=== PATIENT | female | born 1980 | race Caucasian/White ===

== ENCOUNTER 2018-04-13 19:02 | Emergency (ER) | payer OTHER ==
--- OUTSIDE RECORDS SUMMARY | 2018-04-13 19:15 | XMS REPORT | Continuity of Care Document ---
:1980 External Reference #:[id number] Author Name Winsome Bennett Care Team Providers Name Role Phone Tawny Damon MD Primary Care Physician Unavailable Payers Type Date Identification Numbers Payment Provider Subscriber Effective: 2014 Policy Number: [id number] [facility] Christy Hernandez Group Number: [id number] [address] PayID: [id number] GLEN Pina [phone] Expires: 2014 Policy Number: [id number] [employer] Christy Hernandez PayID: [id number] [address] [address] [place] [address] Advance Directives Description No Information Available Problems Date Description Provider Status Onset: 02/02/2011 Hypothyroidism Yenni Cee, N.P. Active Onset: 07/02/2016 Obstructive sleep apnea syndrome Lenora Shaffer MD Active Family History Date Family Member(s) Problem(s) Comments General Diabetes General Heart Disease Father Unknown Mother Hypertension Hypothyroidism age 50 Siblings 1 Sister - Past hx Anorexia age 25 Social History Type Date Description Comments Sex Unknown Marital Status Lives With Spouse Occupation [employer] Occupation [employer] ETOH Use Denies alcohol use Tobacco Use Start: Unknown End: Patient is a former Unknown smoker Smoking Status Reviewed: 03/23/18 Patient is a former smoker Exercise Exercises regularly Aerobics, Free Type/Frequency weights Allergies, Adverse Reactions, Alerts Date Description Reaction Status Severity Comments 02/09/2010 NKDA Active 01/26/2017 Glutein Active Medications Medication Date Status Form Strength Qnty SIG Indications Ordering Provider Synthroid 11/12 Active Tablets 50mcg 90tab Take 1 s Tablet By Varn, Mouth Once N.P. Daily Vitamin D3 Active Capsules 5000Unit 1 by mouth Unknown Maximum Strength /0000 every day Vitamin B-12 Active Michael 1 spray on Unknown /0000 tongue daily as needed + Dha Active THPK 27-1&250m 1 by mouth Unknown /0000 g every day Clotrimazole 09/05 Hx Solution 1% 30ml Apply B37.84 solution to Varn, - canals N.P. 09/19 twice daily for 14 days Escitalopram 05/31 Hx Tablets 20mg 30tab 1 by mouth s every day Varn, - N.P. 01/25 Bupropion HCL ER 05/03 Hx Tablets ER 300mg 30tab 1 by mouth F32.9 Yenni (XL) 24HR s every day Varn, - N.P. 01/25 Bupropion HCL ER 03/29 Hx Tablets ER 150mg 90tab 1 by mouth F32.9 Eynni (XL) 24HR s every day Varn, - N.P. 05/03 Ciprofloxacin 06/17 Hx Tablets 500mg 20tab one by Z71.89 Yenni s mouth twice Varn, - daily for N.P. 06/27 Vivotif Tosha 06/[address] 4caps 1 by mouth Z71.89 Yenni Vaccine every other Varn, - day till N.P. 06/29 Vitamin D3 05/18 Hx Capsules [id number] 8caps one by E55.9 mouth once Varn, - weekly N.P. 07/17 Vitamin D3 01/23 Hx Capsules [id number] 8caps one by mouth once Varn, - weekly N.P. 05/18 Ferrex 28 01/23 Hx Tablets 30tab 1 by mouth s every day Varn, - not taking N.P. 03/29 Vicodin 08/28 Hx Tablets 5-500mg 64tab 1-2 tablets s every 6 Stanford, - hours as M.D. 03/21 Escitalopram 05/05 Hx Tablets 10mg 90tab take one Yenni Oxalate s tablet by Varn, - mouth one N.P. 05/31 time daily Percocet 02/13 Hx Tablets 5-325mg 60tab 1-2 po s q4-6h prn Stanford, - pain M.D. 05/05 Tramadol HCL 12/21 Hx Tablets 50mg 30tab 1 tablet s three to Varn, - four times N.P. 01/20 daily needed Metaxalone 12/15 Hx Tablets 800mg 30tab take 1 723.1 s tablet 3 Varn, - times a day N.P. 01/14 as needed Lidoderm 12/15 Hx Patches 5% 30uni apply to 723.1 ts affected Varn, - area for 12 N.P. 01/14 hrs, remove for 12 hrs and repeat prn Zofran Odt 12/02 Hx Tablets 4mg 40tab q4-6h prn Dispers s Stanford, - M.DElizabeth 05/05 Ranitidine HCL 02/02 Hx Tablets 150mg 60tab take one 530.81 s tablet by Megan, - mouth twice M.D., 03/12 a day FAC Doxycycline 07/30 Hx Capsules 100mg 2caps 2 po Keiko Monohydrate Sheree Guzman.DElizabeth, 08/01 Diflucan 07/30 Hx Tablets 150mg 2tabs sig 1 po repeat in 3 Megan, - days if M.D., 07/31 needed Zithromax Z-Alex 02/09 Hx Tablets 250mg 1Pack two po initially Megan, - then one po M.D., 02/19 daily FAC Flonase 02/09 Hx Suspension 50mcg/Act 1unit 2 s intranasal Megan, - puffs to M.D., 02/02 each nostril daily Synthroid 11/07 Hx Tablets 25mcg 90tab 1 by mouth s every day Sheree Guzman M.D., 11/12 FAC Alprazolam Hx Tablets 0.25mg 30tab 1 tab three Yenni /0000 s times daily Varn, - as needed N.P. 03/07 Implanon Hx Implant 68mg Unknown /0000 - 05/05 Cyclobenzaprine Hx Tablets 10mg 90tab one by Yenni HCL /0000 s mouth three Varn, - times a day N.P. 03/13 as needed spasm Percocet Hx Tablets 5-325mg 1-2 po Unknown /0000 q4-6h prn - pain 05/05 Zinc Hx Capsules 50mg 1 by mouth Unknown /0000 every day - 03/07 Probiotic Daily Hx Capsules 1 by mouth Unknown /0000 every day - 03/07 Immunizations CPT Code Status Date Vaccine Reaction Lot # [id number] Given 01/15/2018 Influenza Virus Vaccine, Quadrivalent, Split, Preservative Free [id number] Given 12/22/2015 Hepatitis B Vaccine Adult no reaction noted [id number] Dosage 37141 Given 12/22/2015 Hepatitis A Vaccine Adult no reaction noted ... [id number] [place] [address] Given 06/18/2015 Hepatitis B Vaccine Adult [id number] Dosage 25607 Given 06/18/2015 Hepatitis A Vaccine Adult [id number] Dosage 99691 Given 12/31/2014 Influenza Virus Vaccine, [id number] Quadrivalent, Split, Preservative Free 73162 Given 12/13/2012 Flu Vaccine Split Virus [id number] Preservative Free For Indiv 3Yr Older [id number] Given 12/16/2011 Fluzone Vaccine [id number] 62810 Given 11/21/2007 Tdap - Tetanus/Diptheria/Acellular Pertussis [id number] Given 11/21/2007 Tdap - Tetanus/Diptheria/Acellular Pertussis Vital Signs Date Vital Result Comment 03/23/2018 10:42am Height 61.5 inches 5'1.50" Weight 171.00 lb Heart Rate 66 /min BP Systolic Sitting 114 mmHg BP Diastolic Sitting 80 mmHg Respiratory Rate 16 /min O2 % BldC Oximetry 98 % on Ra BMI (Body Mass Index) 31.8 kg/m2 09/05/2017 10:44am Height 61.5 inches 5'1.50" Weight 170.00 lb Heart Rate 71 /min BP Systolic 118 mmHg BP Diastolic 80 mmHg Body Temperature 96.7 F O2 % BldC Oximetry 98 % BMI (Body Mass Index) 31.6 kg/m2 03/15/2017 9:26am Height 62 inches 5'2" Weight 179.00 lb Heart Rate 72 /min BP Systolic Sitting 126 mmHg BP Diastolic Sitting 78 mmHg Respiratory Rate 14 /min O2 % BldC Oximetry 99 % BMI (Body Mass Index) 32.7 kg/m2 01/26/2017 2:58pm Height 62 inches 5'2" Heart Rate 82 /min BP Systolic Sitting 122 mmHg BP Diastolic Sitting 90 mmHg Respiratory Rate 12 /min no difficulties breathing Pain Level 0 O2 % BldC Oximetry 98 % 12/14/2016 11:29am Height 62 inches 5'2" Weight 190.00 lb Heart Rate 80 /min BP Systolic 140 mmHg BP Diastolic 90 mmHg Respiratory Rate 16 /min BMI (Body Mass Index) 34.7 kg/m2 07/02/2016 8:56am Height 61.5 inches 5'1.50" Weight 182.00 lb Heart Rate 84 /min BP Systolic Sitting 110 mmHg BP Diastolic Sitting 70 mmHg Respiratory Rate 14 /min O2 % BldC Oximetry 97 % BMI (Body Mass Index) 33.8 kg/m2 05/31/2016 9:48am Weight 186.00 lb with shoes Heart Rate 72 /min BP Systolic 128 mmHg BP Diastolic 92 mmHg Respiratory Rate 16 /min 05/24/2016 11:14am Height 61.5 inches 5'1.50" Weight 187.00 lb Heart Rate 98 /min BP Systolic 110 mmHg BP Diastolic 70 mmHg Respiratory Rate 14 /min O2 % BldC Oximetry 98 % BMI (Body Mass Index) 34.8 kg/m2 Neck Circumference in inches 15 05/03/2016 8:28am Height 61.5 inches 5'1.50" Weight 187.00 lb Heart Rate 70 /min BP Systolic 112 mmHg BP Diastolic 75 mmHg O2 % BldC Oximetry 98 % BMI (Body Mass Index) 34.8 kg/m2 04/23/2016 3:47pm Height 61.5 inches 5'1.50" Weight 188.00 lb Heart Rate 95 /min BP Systolic Sitting 139 mmHg BP Diastolic Sitting 95 mmHg Respiratory Rate 16 /min Body Temperature 96.9 F Pain Level 6 BMI (Body Mass Index) 34.9 kg/m2 03/29/2016 10:19am Height 61.25 inches 5'1.25" Weight 187.00 lb Heart Rate 79 /min BP Systolic 110 mmHg BP Diastolic 78 mmHg Body Temperature 97.9 F O2 % BldC Oximetry 98 % BMI (Body Mass Index) 35.0 kg/m2 12/22/2015 9:13am Weight 186.00 lb with shoes Heart Rate 85 /min BP Systolic Sitting 120 mmHg BP Diastolic Sitting 80 mmHg O2 % BldC Oximetry 98 % 06/18/2015 11:33am Height 61.5 inches 5'1.50" Weight 183.00 lb Heart Rate 81 /min BP Systolic Sitting 110 mmHg BP Diastolic Sitting 64 mmHg Body Temperature 96.8 F O2 % BldC Oximetry 96 % BMI (Body Mass Index) 34.0 kg/m2 05/19/2015 1:15pm Height 61.5 inches 5'1.50" Weight 184.50 lb Heart Rate 74 /min BP Systolic Sitting 109 mmHg BP Diastolic Sitting 71 mmHg Body Temperature 98.2 F Pain Level 0 O2 % BldC Oximetry 99 % BMI (Body Mass Index) 34.3 kg/m2 04/17/2015 1:12pm Height 61.5 inches 5'1.50" Weight 184.00 lb BMI (Body Mass Index) 34.2 kg/m2 03/20/2015 9:51am Height 61.5 inches 5'1.50" Weight 184.00 lb Heart Rate 79 /min BP Systolic Sitting 123 mmHg BP Diastolic Sitting 83 mmHg Respiratory Rate 16 /min Pain Level 8 BMI (Body Mass Index) 34.2 kg/m2 01/24/2015 1:53pm Height 61.5 inches 5'1.50" Weight 184.00 lb Heart Rate 98 /min BP Systolic Sitting 114 mmHg BP Diastolic Sitting 62 mmHg Respiratory Rate 14 /min Body Temperature 98.6 F O2 % BldC Oximetry 97 % BMI (Body Mass Index) 34.2 kg/m2 12/31/2014 10:49am Height 61.5 inches 5'1.50" Weight 185.00 lb Heart Rate 78 /min BP Systolic Sitting 118 mmHg BP Diastolic Sitting 72 mmHg Respiratory Rate 14 /min Body Temperature 98.1 F O2 % BldC Oximetry 98 % BMI (Body Mass Index) 34.4 kg/m2 10/11/2014 3:41pm Weight 185.00 lb Heart Rate 68 /min BP Systolic Sitting 122 mmHg BP Diastolic Sitting 80 mmHg Body Temperature 98.5 F O2 % BldC Oximetry 98 % 09/28/2013 11:40am Weight 176.00 lb Heart Rate 96 /min BP Systolic Sitting 116 mmHg BP Diastolic Sitting 76 mmHg Body Temperature 97.4 F 12/13/2012 10:26am Height 62 inches 5'2" Weight 165.00 lb Heart Rate 66 /min BP Systolic Sitting 120 mmHg BP Diastolic Sitting 76 mmHg BMI (Body Mass Index) 30.2 kg/m2 05/05/2012 8:52am Height 62 inches 5'2" Weight 155.50 lb Heart Rate 68 /min BP Systolic Sitting 104 mmHg BP Diastolic Sitting 70 mmHg BMI (Body Mass Index) 28.4 kg/m2 12/16/2011 10:48am Height 62 inches 5'2" Weight 155.25 lb Heart Rate 88 /min BP Systolic Sitting 120 mmHg BP Diastolic Sitting 78 mmHg BMI (Body Mass Index) 28.4 kg/m2 03/12/2011 1:16pm Height 62 inches 5'2" Weight 146.00 lb Heart Rate 68 /min BP Systolic Sitting 110 mmHg L BP Diastolic Sitting 72 mmHg L BMI (Body Mass Index) 26.7 kg/m2 02/02/2011 3:24pm Height 62 inches 5'2" Weight 142.00 lb Heart Rate 60 /min BP Systolic Sitting 110 mmHg l BP Diastolic Sitting 72 mmHg l Body Temperature 98.7 F BMI (Body Mass Index) 26.0 kg/m2 02/09/2010 2:31pm Weight 148.00 lb Heart Rate 80 /min BP Systolic 112 mmHg BP Diastolic 80 mmHg Body Temperature 97.7 F Results Test Date Facility Test Result H/L Range Note Laboratory test 04/02/2016 [facility] TSH 3.31 mcIU/mL N 0.34- 5.[address] ([place] [address] Stim Horm) [phone] CBC Auto Diff 04/02/2016 [facility] White Blood 9.2 10^3/uL N 3.5-10.[address] [place] [address] [phone] Red Blood Count 4.50 10^6/uL N 4.0-5.4 Hemoglobin 13.5 g/dL N 12.0-16.0 Hematocrit 39 % N 35-47 Mean Corpuscular Volume 87 fL N 80-97 Mean Corpuscular Hemoglobin 30 pg N 27-31 Mean Corpuscular HGB Conc 34 g/dL N 31-36 Red Cell Distribution Width 14 % N 10.5-15 Platelet Count 291 10^3/uL N 150-450 Mean Platelet Volume 8 um3 N 7.4-10.4 Abs Neutrophils 5.7 10^3/uL N 1.5-7.7 Abs Lymphocytes 2.7 10^3/uL N 1.0-4.8 Abs Monocytes 0.6 10^3/uL N 0-0.8 Abs Eosinophils 0.1 10^3/uL N 0-0.6 Abs Basophils 0.1 10^3/uL N 0-0.2 Abs Nucleated RBC 0 10^3/uL N Granulocyte % 62.5 % N 38-83 Lymphocyte % 29.3 % N 25-47 Monocyte % 6.6 % N 1-9 Eosinophil % 0.6 % N 0-6 Basophil % 1.0 % N 0-2 Nucleated Red Blood Cells % 0 N Laboratory test 04/02/2016 [facility] Ferritin 26.0 ng/mL N 11 -[address] [place] [address] [phone] Vitamin D Total 25(Oh) 28.0 ng/mL Low 30-50 Laboratory test 12/22/2015 [facility] Vitamin D 24.5 ng/mL Low 30-[address] Total 25(Oh) [place] [address] [phone] CBC Auto Diff 12/22/2015 [facility] White Blood 7.9 N 3.5- 10.[address] Count 10^3/uL [place], [place] [id number] [phone] Red Blood Count 4.39 10^6/uL N 4.0-5.4 Hemoglobin 13.4 g/dL N 12.0-16.0 Hematocrit 39 % N 35-47 Mean Corpuscular Volume 88 fL N 80-97 Mean Corpuscular Hemoglobin 31 pg N 27-31 Mean Corpuscular HGB Conc 35 g/dL N 31-36 Red Cell Distribution Width 13 % N 10.5-15 Platelet Count 261 10^3/uL N 150-450 Mean Platelet Volume 8 um3 N 7.4-10.4 Abs Neutrophils 4.8 10^3/uL N 1.5-7.7 Abs Lymphocytes 2.5 10^3/uL N 1.0-4.8 Abs Monocytes 0.5 10^3/uL N 0-0.8 Abs Eosinophils 0.1 10^3/uL N 0-0.6 Abs Basophils 0.1 10^3/uL N 0-0.2 Abs Nucleated RBC 0 10^3/uL N Granulocyte % 61.1 % N 38-83 Lymphocyte % 31.0 % N 25-47 Monocyte % 6.3 % N 1-9 Eosinophil % 0.8 % N 0-6 Basophil % 0.8 % N 0-2 Nucleated Red Blood Cells % 0.1 N Laboratory test 12/22/2015 [facility] Ferritin 19.8 ng/mL N 11 -[address] [place] [address] [phone] Iron (Fe) 61 g/dL N 50-212 Laboratory test 05/15/2015 [facility] Vitamin D 18.6 ng/mL Low 30-50 [address] Total 25(Oh) [place] [address] [phone] Ferritin 13.8 ng/mL N 11-307 2 Laboratory test 01/20/2015 [facility] TSH (Thyroid 4.49 ?IU/mL N 0.34-5.[address] Stim Horm) [place] [address] [phone] Free T4 (Free Thyroxine) 0.79 ng/mL N 0.61-1.12 CBC Auto Diff 01/20/2015 [facility] White Blood 9.8 10^3/uL N 4.8-10.[address] [place] [address] [phone] Red Blood Count 4.60 10^6/uL N 4.0-5.4 Hemoglobin 14.1 g/dL N 12.0-16.0 Hematocrit 41 % N 35-47 Mean Corpuscular Volume 89 fL N 80-97 Mean Corpuscular Hemoglobin 31 pg N 27-31 Mean Corpuscular HGB Conc 34 g/dL N 31-36 Red Cell Distribution Width 14 % N 10.5-15 Platelet Count 264 10^3/uL N 150-450 Mean Platelet Volume 8 um3 N 7.4-10.4 Abs Neutrophils 6.3 10^3/uL N 1.5-7.7 Abs Lymphocytes 2.7 10^3/uL N 1.0-4.8 Abs Monocytes 0.7 10^3/uL N 0-0.8 Abs Eosinophils 0 10^3/uL N 0-0.6 Abs Basophils 0.1 10^3/uL N 0-0.2 Abs Nucleated RBC 0.01 10^3/uL N Granulocyte % 64.5 % N 38-83 Lymphocyte % 27.3 % N 25-47 Monocyte % 7.4 % N 1-9 Eosinophil % 0.2 % N 0-6 Basophil % 0.6 % N 0-2 Nucleated Red Blood Cells % 0.1 N Laboratory test 01/20/2015 [facility] Ferritin < 10.0 ng/mL Low 11-[address] [place] [address] [phone] Vitamin D Total 25(Oh) 14.4 ng/mL Low 30-50 Vitamin B12 675 pg/mL N 180-914 3 Thyroid Panel 11/05/2014 [facility] Free T4 (Free 0.75 ng/mL N 0.61-1.[address] Thyroxine) [place] [address] [phone] Thyroxine 6.70 ?g/dL N 6.09-12.23 TSH (Thyroid Stim Horm) 5.45 ?IU/mL N 0.34-5.60 Laboratory test 11/05/2014 [facility] T3 Total 0.97 ng/mL N 0.87-1.[address] [place] [address] [phone] Insulin Level 13.0 mcIU/mL N 2.6 - 24.9 4 Cortisol 8.89 ?g/dL N 5 FSH And LH 11/05/2014 [facility] FSH (Follicle Stim 4.0 mIU/mL N [address] Hormone) [place] [address] [phone] LH (Lutenizing Hormone) 3.2 ?IU/mL N 7 Testosterone Free 11/05/2014 [facility] Free Testosterone 0.6 ng /dL N 0.3-1.9 8 & Total [address] ng/[place] [address] [phone] Testosterone 25 ng/dL N 8-60 9 Laboratory test 11/05/2014 [facility] Prolactin 15.9 ng/mL N 1.0-25.[address] [place] [address] [phone] Thyroperoxidase AB 88.41 IU/mL High <9 Thyroglobulin AB <1.8 IU/mL N <4.0 10 Laboratory test 09/28/2013 [facility] TSH (Thyroid 3.32 IU/mL N 0.34-5.[address] [place] [address] Horm) [phone] Free T4 0.82 ng/mL N 0.61-1.12 Laboratory test 12/05/2012 [facility] TSH (Thyroid 4.09 0.34- 5.[address] Stimulating miu/[place] [address] Horm) [phone] Free T4 0.81 ng/mL 0.61-1.24 Laboratory test 08/21/2012 [facility] Urine Negative Negative [address] [place] [address] [phone] Laboratory test 02/07/2012 [facility] Urine Negative Negative [address] [place] [address] [phone] (HCG) 12/03/2011 [facility] Specific 1.027 1.010- 1.[address] [place] [address] [phone] Urine NEGATIVE Negative 13 Laboratory test 09/20/2011 [facility] Thyroxine Free 0.95 ng/dL 0.61-1.[address] [place] [address] [phone] TSH 2.78 MIU/ML 0.34-5.60 Lipid Profile 09/20/2011 [facility] Triglyceride 118 mg/dL 40 -200 (Trig/Chol/HDL) [address] [place], [place] [address] [phone] Cholesterol 173 mg/dL Less Than 200 14 High Density Lipoprotein 39 mg/dL Low 40-60 15 Cholesterol/HDL Ratio 4.44 AVERAGE 1-4.44 Low Density Lipoprotein 110 mg/dL High Less Than 100 16 Comp Metabolic Panel 09/20/2011 [facility] Sodium 136 mmol/L 135-145 [address] [place] [address] [phone] Potassium 4.2 mmol/L 3.5-5.0 Chloride 108 mmol/L 101-111 Co2 (Carbon Dioxide) 23.0 mmol/L 22-32 Anion Gap 5.0 mmol/L 2-11 17 Glucose 97 mg/dL 70-100 BUN 7 mg/dL 6-24 Creatinine 0.7 mg/dL 0.50-1.40 One Over Creatinine 1.42 BUN/Creatinine Ratio 10.0 8-20 Calcium 9.0 mg/dL 8.1-9.9 Total Protein 6.4 GM/DL 6.2-8.1 Albumin 4.1 GM/DL 3.6-5.4 Globulin 2.3 GM/DL 2-4 Albumin/Globulin Ratio 1.8 1-3 Bilirubin Total 0.7 mg/dL 0.4-1.5 18 Alkaline Phosphatase 53 U/L 30-110 Alt (SGPT) 12 U/L Low 14-54 Ast (Sgot) 18 U/L 12-42 eGFR Non- 97.6 > 60 eGFR 125.5 > 60 19 1 Please get this done the week of March. pt called, faxed to [facility].05-13-15 2 Please get this done the March. pt called, faxed to [facility].05-13-15 3 Normal Range 180 to 914 Indeterminate Range 145 to 180 Deficient Range <145 4 Test Performed by: [place] [address] Contact Worker: Pelon Toscano II, M.D., Ph.D. 5 AM 8.7-22.4 PM <10 6 Normally menstruating females - Follicular phase 3 - 9 - Mid-cycle peak 4 - 23 - Luteal phase 1 - 6 Postmenopausal females 16 - 114 7 Normally menstruating females - Follicular Phase 1 - 18 - Mid-Cycle Peak 24 - 105 - Luteal Phase 0.6 - 20 Postmenopausal females 15 - 62 8 ADDITIONAL INFORMATION Testing performed by [facility]. 9 ADDITIONAL INFORMATION Testing performed by Liquid Chromatography-Tandem Mass Spectrometry (LC-MS/MS). Test Performed by: [place] [address] Contact Worker: Pelon Toscano II, M.D., Ph.D. 10 ADDITIONAL INFORMATION The thyroglobulin antibody testing method is an immunoenzymatic assay manufactured by [employer]. and performed on the M-KOP[employer] DXI 800. Values obtained from different assay methods or kits may be different and cannot be used interchangeably. The results cannot be interpreted as absolute evidence for the presence or absence of malignant disease. Test Performed by: [place] [address] Contact Worker: Pelon Toscano II, M.D., Ph.D. 11 If is still suspected, please repeat test after 48 to 72 hours. This test detects intact HCG only and is indicated for the early detection of . 12 If is still suspected, please repeat test after 48 to 72 hours. This test detects intact HCG only and is indicated for the early detection of . 13 If is still suspected, please repeat test after 48 to 72 hours. . This test detects intact HCG only and is indicated for the early detection of . 14 CHOLESTEROL INTERPRETATION: Desirable: Less than 200 MG/DL Borderline-High Risk: 200-239 MG/DL High-Risk: 240 MG/DL and over 15 HDL INTERPRETATION: Undesirable: High Risk: Less than 40 MG/DL Desirable: Low Risk: Greater than 60 MG/DL 16 LDL INTERPRETATION: Low Risk Optimal Level: LDL Less than 100 MG/DL Near or Above Optimal: LDL 100-129 MG/DL Borderline High Risk: LDL 130-159 MG/DL High Risk: LDL 160-189 MG/DL Very High Risk: LDL Greater than 189 MG/DL 17 Anion gap measurement may be of limited value in the presence of any alkalosis, especially in a combined acid base disorder. . 18 A metabolite of Naproxen, O-desmethylnaproxen, has been shown to interfere with the Abad-[place] method for measuring total bilirubin. Samples from patients who have taken Naproxen have shown spurious elevation in total bilirubin levels. 19 Because ethnic data is not always readily available, this report includes an eGFR for both -Americans and non- Americans. The National Kidney Disease Education Program (NKDEP) does not endorse the use of the MDRD equation for patients that are not between the ages of 18 and 70, are , have extremes of body size, muscle mass, or nutritional status, or are non- or non-. According to the National Kidney Foundation, irrespective of diagnosis, the stage of the disease is based on the level of kidney function: Stage Description GFR(mL/min/1.73 m(2)) 1 Kidney damage with normal or decreased GFR 90 2 Kidney damage with mild decrease in GFR 60-89 3 Moderate decrease in GFR 30-59 4 Severe decrease in GFR 15-29 5 Kidney failure <15 (or dialysis) Procedures Date Code Description Status 06/17/2016 91427 Sleep Study Unattended,HRT Rate,Oxygen Sat,Resp Completed Effort/Airflow 03/21/2013 28485 Rad Exam; Knee, Ap&L Completed 09/20/2012 56306 Rad Exam; Knee, Ap&L Completed 08/21/2012 30720 Reconstruction Of Disloc Patella W/Extensor Realignment Completed And/Or MU 08/21/2012 56603 Reconstruction Of Disloc Patella W/Extensor Realignment Completed And/Or MU 08/21/2012 42047 Anterior Tibial Tubercleplasty Completed 08/21/2012 36714 Anterior Tibial Tubercleplasty Completed 02/07/2012 22435 Unlisted Procedure, Femur/Knee Completed 02/07/2012 20413 Unlisted Procedure, Femur/Knee Completed 02/07/2012 15190 Reconstruction Of Disloc Patella W/Extensor Realignment Completed And/Or MU 02/07/2012 86241 Reconstruction Of Disloc Patella W/Extensor Realignment Completed And/Or MU 12/03/2011 33892 Arthroscopy,Knee,Meniscectomy Medial Or Lateral Completed 11/11/2011 18003 Rad Exam; Knee Comp Completed 11/11/2011 00827 Xray Knee 3 Views Completed Encounters Type Date Location Provider Dx Diagnosis Office Visit 09/05/2017 Marking Clerk Internal Yenni Cee, B37.84 Candidal otitis 10:40a Medicine - N.P. externa [place] Office Visit 03/15/2017 Pulmonology And Lenora Shaffer G47.33 Obstructive sleep 9:15a Sleep Services Of apnea (adult) [facility] (pediatric) E66.09 Other obesity due to excess calories Office Visit 01/26/2017 Orthopedic Bebeto Causey, M25.372 Other instability, 2:45p Services Of [facility] left ankle AT [place] Office Visit 12/14/2016 Orthopedic Bebeto Causey, M25.372 Other instability, 11:00a Services Of left ankle C.M.A. S93.492A Sprain of other ligament of left ankle, initial encounter Y93.01 Activity, walking, marching and hiking Office Visit 07/02/2016 8:45a Pulmonology And Lenora G47.33 Obstructive sleep Sleep Services Of MD Deena apnea (adult) [facility] (pediatric) Office Visit 05/31/2016 10:00a [facility] Internal Yenni Cee, F32.9 Major depressive Medicine - N.P. 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 disorder, single [place] episode, unspecified Office Visit 04/23/2016 3:30p Orthopedic Brown M65.872 Other synovitis Services Of Janina Walker and C.M.AElizabeth tenosynovitis, left ankle and foot Office Visit 03/29/2016 10:20a [facility] Internal Yenni Cee, F32.9 Major depressive Medicine - N.P. disorder, single [place] episode, unspecified M54.2 Cervicalgia G47.10 Hypersomnia, unspecified Office Visit 12/22/2015 9:00a [facility] Internal Yenni Cee, Z23 Encounter for Medicine - N.P. immunization [place] E55.9 Vitamin D deficiency, unspecified E61.1 Iron deficiency Office Visit 06/18/2015 11:20a [facility] Internal Yenni Cee, Z71.89 Other specified Medicine - N.P. counseling [place] Z23 Encounter for immunization Office Visit 05/19/2015 1:20p [facility] Internal Yenni Cee, E55.9 Vitamin D Medicine - N.P. 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 [place] Office Visit 12/31/2014 10:40a [facility] Internal Yenni Cee, Z00.00 Encntr for Medicine - N.P. general adult [place] medical exam w/o abnormal findings E03.9 Hypothyroidism, unspecified Z23 Encounter for immunization R53.83 Other fatigue Office Visit 10/11/2014 [facility] Yenni Cee, 783.1 Weight Gain Abnormal 3:40p Medicine - N.P. [place] Office Visit 09/28/2013 [facility] Internal Yenni Cee, 244.9 Hypothyroidism Other 11:40a Medicine - N.P. Unspec [place] Office Visit 03/21/2013 Cher Murray 272.8 Lipoid Metabolism 9:45a Services Of Janina Coyne Disorders Other C.M.A. Office Visit 12/13/2012 [facility] Internal Yenni Cee, V70.0 Examination General 10:40a Medicine - N.P. Medical Routine AT [facility] 244.9 Hypothyroidism Other Unspec 300.00 Anxiety State Unspec V04.81 Need For Prophylactic Vaccination & Inoculation/Influenza Office Visit 07/13/2012 Orthopedic Benjamín Bartholomew 718.86 Derangement Joint 10:15a Services Of Diana, [place] Not C.M.A. R.P.A.-C Elsewhere Class Lower Leg Office Visit 06/15/2012 Orthopedic Trevor Coyne, 718.86 Derangement Joint 10:30a Services Of Janina Other Not C.M.A. Elsewhere Class Lower Leg Office Visit 05/05/2012 [facility] Internal Yenni Cee, 300.00 Anxiety State 8:40a Medicine - N.P. Unspec [place] Office Visit 12/16/2011 [facility] Internal Yenni Cee, 723.1 Cervicalgia 10:40a Medicine - N.P. [place] V04.81 Need For Prophylactic Vaccination & Inoculation/Influenza Office Visit 11/24/2011 3:00p Orthopedic Trevor 718.86 Derangement Joint Services Of Janina Coyne Other Not C.M.A. Elsewhere Class Lower Leg 717.6 Loose Body In Knee Office Visit 11/11/2011 8:00a Cher Murray 718.86 Derangement Joint Services Of Janina Coyne Other Not C.M.A. Elsewhere Class Lower Leg Office Visit 03/12/2011 1:20p [facility] Internal Yenni Cee, V70.0 Examination Medicine - N.P. General Medical [place] Routine AT [facility] 244.9 Hypothyroidism Other Unspec 272.4 Hyperlipidemia Other Unspec 723.1 Cervicalgia Office Visit 02/02/2011 DO Not Use Yenni Varn, 530.81 Esophageal Reflux 3:20p [facility]ing Clerk[facility] N.P. Office Visit 02/09/2010 DO Not Use Yenni Varn, 461.9 Sinusitis Acute 2:30p [facility]ing [facility] N.P. Unspec Office Visit 09/17/2009 DO Not Use Yenni Varn, V70.0 Examination 3:00p [facility]ing [facility] N.P. General Medical Routine AT [facility] v70.0 Examination General Medical Routine AT [facility] 244.9 Hypothyroidism Other Unspec 780.79 Malaise And Fatigue Other Office Visit 01/24/2008 DO Not Use Yenni 558.9 Gastroenteritis & 1:45p [facility] Varn, N.P. Colitis Noninfectious Other Office Visit 12/22/2007 DO Not Use Yenni V70.0 Examination General 10:00a [facility] Varn, N.P. Medical Routine AT [facility] 780.52 Insomnia Unspecified 244.9 Hypothyroidism Other Unspec 723.1 Cervicalgia Office Visit 10/27/2007 DO Not Use Yenni Varn, 493.90 Asthma Unspec W/O 3:45p [facility] N.P. Status Asthmaticus 466.0 Bronchitis Acute 519.11 Acute Bronchospasm Office Visit 10/16/2007 DO Not Use Yenni 466.0 Bronchitis Acute 2:15p [facility] Varn, N.P. Office Visit 08/25/2006 DO Not Use Keiko Megan, 244.9 Hypothyroidism 10:00a Keke Roa, FACP Other Unspec Office Visit 06/24/2006 DO Not Use Keikodario Guzman, 245.2 Thyroiditis Chronic 9:45a Keke Roa, FACP Lymphocytic Office Visit 06/09/2006 DO Not Use Keikodario Guzman, 244.9 Hypothyroidism 1:45p Keke Roa, FACP Other Unspec 272.0 Hypercholesterolemia Pure Plan of Treatment Future Appointment(s):09/19/2018 9:00 am - Lenora Shaffer MD at [facility]03/23/2018 - Lenora Shaffer MDG47.33 Obstructive sleep apnea (adult) (pediatric)Follow up:6 months
[2018-04-13] MEDS ORDERED: RHO D Immune Globulin (HUMAN)* 300 MCG = 1,500 I.U. INJ IM ONE (21:52)
--- NOTE | 2018-04-13 22:07 | ED ---
GI/ HPI - HPI Summary HPI Summary: Pt is a 37 y/o F presenting to the ED with a chief complaint of vaginal bleeding onset 1844. Pt reports she was spotting on and off with brownish blood , then she went to the bathroom again later and the blood was pink/red. Pt denies cramps. Hx includes miscarriage in June of 2017 and an in 1998. - History of Current Complaint Chief Complaint: EDOBProblems Time Seen by Provider: 04/13/18 21:40 Stated Complaint: 16 WKS PREG/BLEEDING Hx Obtained From: Patient Onset/Duration: Started Hours Ago, Still Present Timing: Constant, Lasting Hours Severity: Mild Current Severity: None Vaginal Bleeding Description: Bright Red, Brownish-Red Pain Intensity: 0 Location of Pain: None Additional Signs & Symptoms: Positive: Vaginal Bleeding - spotting Aggravating Factor(s): Nothing Alleviating Factor(s): Nothing - Allergy/Home Medications Allergies/Adverse Reactions: Allergies Allergy/AdvReac Type Severity Reaction Status Date / Time No Known Allergies Allergy Verified 08/21/12 11:30 PMH/Surg Hx/FS Hx/Imm Hx Previously Healthy: No Endocrine/Hematology History: Reports: Hx Thyroid Disease - HYPOTHYROID, TAKES LEVOTHYROXINE Denies: Hx Anticoagulant Therapy, Hx Diabetes Cardiovascular History: Denies: Hx Hypertension, Hx Pacemaker/ICD Respiratory History: Denies: Hx Asthma, Hx Chronic Obstructive Pulmonary Disease (COPD) GI History: Reports: Hx Gastroesophageal Reflux Disease, Hx Irritable Bowel - IBS SYNDROME MANAGED WITH DIET History: Denies: Hx Renal Disease Musculoskeletal History: Reports: Other Musculoskeletal History - CHRONIC NECK PAIN, RIGHT KNEE INSTABILITY Sensory History: Denies: Hx Contacts or Glasses, Hx Hearing Aid Opthamlomology History: Denies: Hx Contacts or Glasses Neurological History: Reports: Hx Headaches - SEE BELOW Denies: Hx Dementia, Hx Seizures Psychiatric History: Reports: Hx Anxiety - MEDS PRN Denies: Hx Panic Disorder, Hx Substance Abuse - Surgical History Surgery Procedure, Year, and Place: 1995 TONSILLECTOMY- [facility]. 2001 BILATERAL BREAST REDUCTION- [facility]. 2011 RT KNEE ARTHROSCOPY- [facility]. 02/15 CARTILAGE REPLACEMENT RIGHT KNEE- [facility] Hx Anesthesia Reactions: Yes - NAUSEA, ZOFRAN EFFECTIVE - Immunization History Date of Tetanus Vaccine: utd Infectious Disease History: No Infectious Disease History: Denies: Hx Hepatitis, Hx Human Immunodeficiency Virus (HIV), Traveled Outside the [place] in Last 30 Days - Family History Known Family History: Negative: Diabetes - Social History Substance Use Type: Reports: None Review of Systems Negative: Abdominal Pain Positive: other - vaginal bleeding All Other Systems Reviewed And Are Negative: Yes Physical Exam - Summary Physical Exam Summary: VITAL SIGNS: Reviewed. GENERAL: Patient is a well-developed and nourished female who is lying comfortable in the stretcher. Patient is not in any acute respiratory distress. Fundal level is 18 weeks. HEAD AND FACE: No signs of trauma. No ecchymosis, hematomas or skull depressions. No sinus tenderness. EYES: PERRLA, EOMI x 2, No injected conjunctiva, no nystagmus. EARS: Hearing grossly intact. Ear canals and tympanic membranes are within normal limits. MOUTH: Oropharynx within normal limits. NECK: Supple, trachea is midline, no adenopathy, no JVD, no carotid bruit, no c- spine tenderness, neck with full ROM. CHEST: Symmetric, no tenderness at palpation LUNGS: Clear to auscultation bilaterally. No wheezing or crackles. CVS: Regular rate and rhythm, S1 and S2 present, no murmurs or gallops appreciated. ABDOMEN: Soft, non-tender. No signs of distention. No rebound no guarding, and no masses palpated. Bowel sounds are normal. EXTREMITIES: FROM in all major joints, no edema, no cyanosis or clubbing. NEURO: Alert and oriented x 3. No acute neurological deficits. Speech is normal and follows commands. SKIN: Dry and warm Triage Information Reviewed: Yes Vital Signs On Initial Exam: Initial Vitals Temp Pulse Resp BP Pulse Ox 99.9 F 96 18 136/98 98 04/13/18 19:06 04/13/18 19:06 04/13/18 19:06 04/13/18 19:06 04/13/18 19:06 Vital Signs Reviewed: Yes Diagnostics - Vital Signs Vital Signs Temp Pulse Resp BP Pulse Ox 04/13/18 19:06 99.9 F 96 18 136/98 98 - Laboratory Lab Statement: Any lab studies that have been ordered have been reviewed, and results considered in the medical decision making process. - Ultrasound No standard instances Ultrasound Interpretation Completed By: Radiologist Summary of Ultrasound Findings: 1. Single living intrauterine fetus with an ultrasound age of 17 weeks 0 days. which is concordant with the clinical age. 2. Low-lying placenta with small volume of hemorrhage within the endocervical. canal possibly due to the placental position. ED Physician has reviewed this report. GIGU Course/Dx - Course Course Of Treatment: Pt is a 37 y/o F presenting to the ED with a chief complaint of vaginal bleeding onset 1844. Pt reports she was spotting on and off with brownish blood, then she went to the bathroom again later and the blood was pink/red. Pt denies cramps. A1. Transvaginal US shows 1. Single living intrauterine fetus with an ultrasound age of 17 weeks 0 days. which is concordant with the clinical age. 2. Low-lying placenta with small volume of hemorrhage within the endocervical. canal possibly due to the placental position. Pt will be sent home with a dx of threatened miscarriage and instructions to follow up with head of product pending her lab results. - Diagnoses Provider Diagnoses: Threatened miscarriage Discharge - Sign-Out/Discharge Documenting (check all that apply): Patient Departure Patient Received Moderate/Deep Sedation with Procedure: No - Discharge Plan Condition: Stable Disposition: HOME Referrals: Yenni Cee NP [Primary Care Provider] - Additional Instructions: PLEASE FOLLOW UP WITH TECHNICAL SERVICE REPRESENTATIVE IN THE MORNING. REST AND DO NOT HAVE SEXUAL INTERCOURSE UNTIL THE BLEEDING STOPS. FOLLOW UP WITH YOUR PRIMARY CARE PROVIDER IN 1-2 DAYS. RETURN TO THE EMERGENCY DEPARTMENT WITH ANY NEW OR WORSENING SYMPTOMS. - Billing Disposition and Condition Condition: STABLE Disposition: Home - Attestation Statements Document Initiated by Titi: Yes Documenting Scribe: Tameka Mcneil Provider For Whom Titi is Documenting (Include Credential): Dayron Casey MD. Scribe Attestation: Tameka Camilo scribed for Dayron Casey MD. on 04/14/18 at 0609. Scribe Documentation Reviewed: Yes Provider Attestation: The documentation as recorded by the Tameka perales accurately reflects the service I personally performed and the decisions made by , Dayron Casey MD. Status of Scribe Document: Viewed
[2018-04-13 22:47] LABS: Urine Appearance Clear; Urine Bacteria 1+ (Absent); Urine Bilirubin Negative (Negative); Urine Blood 2+ (Negative); Urine Color Straw; Urine Glucose Negative (Negative); Urine Ketones Negative (Negative); Urine Nitrite Negative (Negative); Urine Protein Negative (Negative); Urine Red Blood Cell Trace(0-2/hpf) (Absent); Urine Specific Gravity 1.004 (1.010-1.030); Urine Squamous Epithelial Cell Present (Absent); Urine Urobilinogen Negative (Negative); Urine White Blood Cell Trace(0-5/hpf) (Absent)
[2018-04-14] MEDS ORDERED: RHO D Immune Globulin (HUMAN)* 300 MCG = 1,500 I.U. INJ IM ONE
[2018-04-14 00:11] VITALS: BP 121/70
== END 2018-04-14 00:47 | disposition home or self-care (01) ==
LOC: ED 19:02
DX: O20.0 Threatened abortion (principal); Z3A.16 16 weeks gestation of pregnancy
CPT/HCPCS: 36415; 76817; 81003; 81015; 86850; 86900; 86901; 87086; 99282; J2790

== ENCOUNTER 2018-06-17 05:28 | Observation (INO) | payer OTHER ==
[2018-06-17 06:23] LABS: Urine Appearance Cloudy; Urine Bacteria Absent (Absent); Urine Bilirubin Negative (Negative); Urine Blood 1+ (Negative); Urine Color Straw; Urine Glucose Negative (Negative); Urine Ketones Negative (Negative); Urine Nitrite Negative (Negative); Urine Protein 1+(30 mg/dL) (Negative); Urine Red Blood Cell Trace(0-2/hpf) (Absent); Urine Specific Gravity 1.002 (1.010-1.030); Urine Squamous Epithelial Cell Present (Absent); Urine Urobilinogen Negative (Negative); Urine White Blood Cell Trace(0-5/hpf) (Absent)
[2018-06-17] MEDS ORDERED: Lactated Ringers 1000 ML Bag* 1,000 ML IV ONE (06:32)
[2018-06-17] MEDS ORDERED: Buffered Lidocaine 1% SYRIN* 1 ML/SYRINGE INTRADERM ONE (06:32)
[2018-06-17] MEDS ORDERED: Betamethasone INJ* 6 MG/ML 5 ML VIAL (30 MG) IM ONE (06:33)
[2018-06-17] MEDS ORDERED: Magnesium Sulf 4 GM/100 ML IV* 4,000 MG/100 ML BAG IVPB ONE (06:57)
[2018-06-17] MEDS ORDERED: Lactated Ringers 1000 ML Bag* 1,000 ML IV SCH (07:00)
[2018-06-17] MEDS ORDERED: Ampicillin IV* 1 GM VIAL IV SCH (07:00)
[2018-06-17] MEDS ORDERED: Magnesium Sulfate OB PREMIX* 40 GM/1,000 ML BAG IVPB SCH (07:00)
[2018-06-17] MEDS ORDERED: Ampicillin ADVAN(*) 2 GM in NS 0.9% 100 ML* 100 ML IVPB SCH (07:00)
[2018-06-17 07:02] LABS: ABS Basophils 0.1 10^3/ul (0-0.2); ABS Eosinophils 0.1 10^3/ul (0-0.6); ABS Lymphocytes 2.5 10^3/ul (1.0-4.8); ABS Monocytes 0.9 10^3/ul (0-0.8); ABS Neutrophils 8.7 10^3/ul (1.5-7.7); ABS Nucleated RBC 0 10^3/ul; Eosinophil % 0.6 %; Hematocrit 32 % (33-41); Lymphocyte % 20.2 %; Mean Corpuscular HGB Conc 34 g/dL (31-36); Mean Corpuscular Hemoglobin 31 pg (27-31); Mean Corpuscular Volume 90 fL (80-97); Mean Platelet Volume 8.2 fL (7.4-10.4); Nucleated Red Blood Cells % 0.1; Platelet Count 250 10^3/uL (150-450); Red Blood Count 3.59 10^6 /uL (3.70-4.87); Red Cell Distribution Width 14 % (10.5-15); White Blood Count 12.4 10^3/uL (3.5-10.8)
--- NOTE | 2018-06-17 07:09 | HP ---
General Information - Reason for Visit 37 yo at 25weeks 1 day with pprom at approximately 0530 am . She had a ROM plus that ondicated that this was correct. - General Information Maternal Age: 37 Grav: 3 Para: 0 SAB: 1 IEA: 1 Estimated Due Date: 09/29/18 Determined By: LMP Maternal Blood Type and Rh: A Negative - Results this Serology/RPR Result: Non-Reactive Rubella Result: Immune HBsAg Result: Negative HIV Result: Negative Past Medical History Delivery History: See Records Pertinent Past Medical History: See Records - prediabetes / hypothyroid/ AMA Review of Systems Constitutional: Comfortable CV Complaint: No Respiratory: Shortness of Breath: No Genitourinary: Leaking Fluid, No Bleeding Musculoskeletal: No Complaint Neurological: No Headache Movement: Normal Exam Allergies/Adverse Reactions: Allergies No Known Allergies Allergy (Verified 08/21/12 11:30) Lab Values - Entire Visit: Laboratory Tests 06/17/18 06/17/18 06/17/18 05:45 05:45 06:50 WBC 12.4 H RBC 3.59 L Hgb 11.0 L Hct 32 L MCV 90 MCH 31 MCHC 34 RDW 14 Plt Count 250 MPV 8.2 Neut % (Auto) 70.4 Lymph % (Auto) 20.2 [place] % (Auto) 7.6 Eos % (Auto) 0.6 Baso % (Auto) 1.2 Absolute Neuts (auto) 8.7 H Absolute Lymphs (auto) 2.5 Absolute Monos (auto) 0.9 H Absolute Eos (auto) 0.1 Absolute Basos (auto) 0.1 Absolute Nucleated RBC 0 Nucleated RBC % 0.1 Urine Color Straw Urine Appearance Cloudy Urine pH 7.0 Ur Specific [place] 1.002 L Urine Protein 1+(30 mg/dl) A Urine Ketones Negative Urine Blood 1+ A Urine Nitrate Negative Urine Bilirubin Negative Urine Urobilinogen Negative Ur Leukocyte Esterase Negative Urine WBC (Auto) Trace(0-5/hpf) Urine RBC (Auto) Trace(0-2/hpf) Ur Squamous Epith Cells Present A Urine Bacteria Absent Urine Glucose Negative Vag Amniotic Fld Detect Positive - Measurements Height: 5 ft 1 in Weight: 180 lb Weight in lbs: [phone] Body Mass Index (BMI): 34.0 - Exam Breast: Breast Exam Deferred Extremities: No Edema Heart: Normal Rhythm/Heart Sounds HEENT: No Significant Findings Lungs: Clear Bilaterally Rectal: Rectal Exam Deferred Reflexes: DTR 2+ Targeted Exam Findings See L&D Outpatient Visit Provider Note for Findings: N/A Presenting Part: Breech Membrane Status: SROM Amniotic Fluid Evaluation: Positive ROM Plus EFM Findings - External Monitor Findings Baseline Heart Rate: 150 External Monitor Findings: Variability Moderate Contractions: None Assessment/Plan - Assessment 37 yo with 25 weeks with prrom / starting betamethasone /GBS prophylaxis with ampicillin/ per Margaret will start magnesium for neuro prophylaxis - Obstetrical Risk Factors Obstetrical Risk Factors: GBS Unknown, - transfer to [place] / d/w pt and they checked with insurance/ d/w accepting physician - Plan Plan: [facility]
== END 2018-06-17 08:30 | disposition short-term general hospital (02) | DRG 566 ==
LOC: MCHOBOUT 05:28 → INTOOBSV 06:36 → MCHOB 06:36
PROVIDERS: ADMIT Obstetrics & Gynecology; ATTEND Obstetrics & Gynecology
PROC: 4A1HXCZ Monitoring of Products of Conception, Cardiac Rate, External Approach (ICD-10-PCS; principal; 2018-06-17)
DX: O42.912 Preterm premature rupture of membranes, unspecified as to length of time between rupture and onset of labor, second trimester (principal); Z3A.25 25 weeks gestation of pregnancy; O99.282 Endocrine, nutritional and metabolic diseases complicating pregnancy, second trimester; E03.9 Hypothyroidism, unspecified; O99.89 Other specified diseases and conditions complicating pregnancy, childbirth and the puerperium; R73.03 Prediabetes
CPT/HCPCS: 36415; 81003; 81015; 84112; 85025; 86850; 86870; 86880; 86900; 86901; 87086; 87480; 87510; 87660; J0702; J3475